=== PATIENT | male | born 1945 | race Caucasian/White ===

== ENCOUNTER 2019-09-28 14:21 | Emergency (ER) | payer MEDICARE ==
[~2019-09-28] VITALS: Ht 188 cm; Wt 136.4 kg
[~2019-09-28 14:21] MED LIST: CLON-529 PO; FLO0.4C PO; FURO-150 PO; GABA-532 PO; METO5TAB98 PO; MINO10TA16 PO; NOR5T PO; NORCO10T PO; OMEP-84 PO; TAMS0.4C32 PO
[2019-09-28] MEDS ORDERED: morphine 4 MG/ML inj SYRINge IV ONE (14:35)
[2019-09-28] MEDS ORDERED: orphenadrine citrate 60mg/2ml inj. IM ONE (14:35)
[2019-09-28] MEDS ORDERED: ondansetron/PF 4mg/2ml inj IV ONE (14:35)
[2019-09-28] MEDS ORDERED: HYDROcodone/acetaminophen 5mg/325mg tablet PO ONE (16:05)
[2019-09-28 19:33] VITALS: BP 127/94
== END 2019-09-28 19:26 | disposition home or self-care (01) ==
LOC: ER 14:23
DX: M54.5 Low back pain (principal); G89.29 Other chronic pain; G20 Parkinson's disease; E66.9 Obesity, unspecified; I13.0 Hypertensive heart and chronic kidney disease with heart failure and stage 1 through stage 4 chronic kidney disease, or unspecified chronic kidney disease; N18.9 Chronic kidney disease, unspecified; I50.9 Heart failure, unspecified; M19.90 Unspecified osteoarthritis, unspecified site; Z90.49 Acquired absence of other specified parts of digestive tract; Z98.890 Other specified postprocedural states; Z79.899 Other long term (current) drug therapy; W18.30XA Fall on same level, unspecified, initial encounter; Y93.89 Activity, other specified; Y92.89 Other specified places as the place of occurrence of the external cause; Y99.9 Unspecified external cause status
CPT/HCPCS: 72131; 74176; 96372; 96374; 96375; 99284; J2270; J2360; J2405